=== PATIENT | female | born 1990 | race Caucasian/White ===

== ENCOUNTER → 2023-03-10 23:12 | Outpatient (CLI) | payer BC, SELFPAY ==
[2023-03-10 18:11] LABS: Basophils # 0.1 K/mm3 (0-0.2); Basophils % 0.7 % (0.1-2.0); Eosinophils # 0.1 K/mm3 (0.0-0.4); Eosinophils % 1.4 % (0.1-12.0); Hematocrit 42.1 % (37.0-47.0); Hemoglobin 13.7 g/dL (12.2-16.2); Lymphocytes # 2.3 K/mm3 (0.7-4.5); Lymphocytes % 32.6 % (10-50); Mean Corpuscular HGB Conc 32.6 g/dL (31.8-35.4); Mean Corpuscular Hemoglobin 27.9 pg (27.0-31.2); Mean Corpuscular Volume 85.4 fl (81-99); Mean Platelet Volume 8.3 fl (7.4-10.4); Monocytes # 0.3 K/mm3 (0.1-1.0); Monocytes % 4.8 % (1.7-9.3); Neutrophils # 4.3 K/mm3 (1.8-7.8); Neutrophils % 60.5 % (37.0-80.0); Platelet Count 256 K/mm3 (142-424); Red Blood Count 4.93 M/mm3 (4.20-5.40); White Blood Count 7.1 K/mm3 (4.8-10.8)
[2023-03-10 18:17] LABS: Anion Gap 12.4 mEq/L (5-15); Blood Urea Nitrogen 9 mg/dl (7-17); Carbon Dioxide 27 mmol/L (22.0-30.0); Chloride 105 mmol/L (98-107); Estimated Glomerular Filt Rate 96 ml/min (>60); GFR (African American) 116 ML/MIN (>60); Glucose 97 mg/dl (74-100); Potassium 4.4 mmoL/L (3.5-5.1); Sodium 140 mmol/L (136-145)
== END ==
PROVIDERS: PCP Nurse Practitioner; Visit Provider Nurse Practitioner
DX: Z01.818 Encounter for other preprocedural examination (principal)
CPT/HCPCS: 80048; 85025

== ENCOUNTER 2025-08-14 14:13 | Outpatient (CLI) | payer BC, SELFPAY ==
--- OUTSIDE RECORDS SUMMARY | 2024-08-13 10:45 | XMS_ITS ---
Author Organization [facility], [place], operated by [facility] Address [address] [place] [address] Care Team Providers Care Patternmaker Hand Name Role Phone Debi Askew Unavailable [phone] DallamNora menjivar Unavailable [phone] REASON FOR VISIT Annual Encounters Encounter Location Date Provider Diagnosis [facility] [address] [place] [address] 08/13/2024 Nora Graham Plan Of Treatment No Information Progress Notes * Silke BEALDOB:1989 (35 yo F)Acc No.[id number]:08/13/2024 Progress Note Patient: Radha sagastume Silke Hurtado Provider: Erlin Graham DO :1990 A ge:34 Y S ex:Female Date:08/13/2024 Address:[address] [place], [place] [id number] Subjective: * Chief Complaints: * A nnual * Electronic signature of Junior Graham DO on 08/14/2025 at 03:32 PM EST Sign off status: Pending Visit Status: R /S (Rescheduled) * Provider: Erlin Graham DO Date: 10/14/2023 Generated for Jean Paul vigil/[place]/eTransmitting on: 10/15/2024 03:32 PM EST
--- OUTSIDE RECORDS SUMMARY | 2024-10-08 10:45 | XMS_ITS ---
Author Organization [facility] Address [address] [place] [address] Care Team Providers Care Legal Office Administrator Name Role Phone Debi Askew Unavailable [phone] BaileyNora menjivar Unavailable [phone] REASON FOR VISIT Annual Encounters Encounter Location Date Provider Diagnosis [facility] [address] [place] [address] 10/08/2024 Nora Graham Plan Of Treatment No Information Progress Notes * Silke BEALDOB:1989 (35 yo F)Acc No.[id number]:10/08/2024 Progress Note Patient: Radha sagastume Silke Hurtado Provider: Erlin Graham DO :1990 A ge:34 Y S ex:Female Date:10/08/2024 Address:[address] [place], [place] [id number] Subjective: * Chief Complaints: * A nnual * Electronic signature of Junior Graham DO on 08/14/2025 at 03:31 PM EST Sign off status: Pending Visit Status: R /S (Rescheduled) * Provider: Erlin Graham DO Date: 0 10/08/2024 Generated for Jean Paul vigil/[place]/eTranzuhairitting on: 1 10/15/2024 03:31 PM EST
--- OUTSIDE RECORDS SUMMARY | 2024-10-17 05:15 | XMS_ITS ---
Author Organization [facility] Address [address] [place] [address] Care Team Providers Care Maintenance Of Way Superintendent Name Role Phone Debi Askew Unavailable [phone] CharlyIsis [phone] REASON FOR VISIT Annual Encounters Encounter Location Date Provider Diagnosis [facility] [address] [place] [address] 10/17/2024 Isis Parks Plan Of Treatment No Information Progress Notes * Silke BEALDOB:1989 (35 yo F)Acc No.[id number]:10/17/2024 Progress Note Patient: Radha sagastume Silke Hurtado Provider: Lidia Parks MD :1990 A ge:34 Y S ex:Female Date:10/17/2024 Address:[address] [place], [place] [id number] Subjective: * Chief Complaints: * A nnual * Electronic signature of Mirian Parks MD on 08/14/2025 at 03:32 PM EST Sign off status: Pending Visit Status: R /S (Rescheduled) * Provider: Lidia Parks MD Date: 0 10/17/2024 Generated for Jean Paul vigil/[place]/eTransmitting on: 1 10/15/2024 03:32 PM EST
--- OUTSIDE RECORDS SUMMARY | 2024-12-25 09:45 | XMS_ITS ---
Author Organization [facility] Address [address] [place] [address] Care Team Providers Care Kraft Digester Operator Name Role Phone Whitney iTnsley Primary Care Provider UnavailKartik Bustamante Unavailable [phone] REASON FOR VISIT Not Feeling Well Encounters Encounter Location Date Provider Diagnosis [address] [address] 12/25/2024 Kartik Walker Plan Of Treatment No Information Progress Notes * Barrett BEALTaviaOB:[birth year] (35 yo F)Acc No.[id number]:12/25/2024 Progress Notes Patient: Silke JONES Provider: BESSIE Watkins, LEBRON, CONVEYOR CONSOLE OPERATOR-BC :1990 A ge:34 Y S ex:Female Date:12/25/2024 External Visit ID:[id number] Address:[address], [place] [address] Pcp:Whitney Tinsley Subjective: * Chief Complaints: * 1 . Not Feeling Well. * Medical History: Objective: * Vitals: Assessment: Plan: * Treatment: * Billing Information: * Visit Code: * Procedure Codes: Care Plan Details* * Electronic signature of Luis in LEBRON Walker on 08/14/2025 at 02:32 PM [facility] Sign off status: Pending * Provider: BESSIE Watkins, COST ENGINEER, CONVEYOR CONSOLE OPERATOR-BC Date: 0 12/25/2024 Generated for Printing/Faxing/eTransmitting on: 1 10/15/2024 02:32 PM [facility]
--- OUTSIDE RECORDS SUMMARY | 2025-07-28 07:45 | XMS_ITS ---
Author Organization [facility] Address [address] [place] [address] Care Team Providers Care Host/Hostess Restaurant Name Role Phone LaureanoWhitney Primary Care Provider Unavailconstantin e Zofia Thapa Unavailable [phone] Allergies Allergen (clinical drug ingredient) Drug/Non Drug Allergy documented on EMR Reaction Allergy Type Onset Date Status vancomycin Vancomycin rash Drug Allergy Activ e Results Component Value Reference Range Notes Rapid Strep Screen (IH) Reviewed date:07/28/2025 01:15:29 PM Interpretation:Negative Performing Lab: Notes/Report: Negative Negative NEG REASON FOR VISIT I've been waking up with a sore throat Social History Tobacco Use: Social History Observation Description Date Details (start date - stop date) Never Smoker NA - NA Tobacco Control (Standard) Question Answer Notes Tobacco use: Nonsmoker AUDIT-C (Standard) Question Answer Notes Did you have a drink containing alcohol in the p ast year? No Points 0 Interpretation Negative Vital Signs Temperature 98.6 degrees Fahrenheit 07/28/20 25 Respiratory Rate 15 /min 07/28/2025 Blood pressure systolic 106 mm Hg 07/28/20 25 Blood pressure diastolic 68 mm Hg 025 Height 067 in 07/28/2025 Weight 0160 lbs 07/28/2025 BMI 25.06 kg/m2 07/28/2025 Encounters Encounter Location Date Provider Diagnosis [address] [place] [address] [address] [facility] [address] [place] [address] 07/28/2025 Zofia Thapa Sore throat J02.9 and Screening for streptococcal infection Z11.2 Assessments Encounter Date Diagnosis (ICD Code) Assessment Notes Treatment Notes Treatment Clinical Notes Section Notes 07/28/2025 Sore throat (ICD-10 - J02.9) Add a humidifier in the room that you sleep and take OTC analgesic medications. 07/28/2025 Screening for streptococcal infection (ICD-10 - Z11.2) Plan Of Treatment Treatment Notes Assessment Notes Sore throat Add a humidifier in the room that you sleep and take OTC analgesic medications. Next Appt Details Follow Up: Here, in 7-10 day s if symptoms do not improve, Reason: Progress Notes * Angeline BEALOB:[birth year] (35 yo F)Acc No.[id number]:07/28/2025 Progress Notes Patient: Silke JONES Provider: Genesis Thapa DNP :1990 A ge:35 Y S ex:Female Date:07/28/2025 External Visit ID:[id number] Address:[address] [place], [place] [address] Pcp:Whitney Tinsley Subjective: * Chief Complaints: * 1 . I've been waking up with a sore throat . * HPI: M outh and Throat: sore throat O n Tuesday she started getting a sore throat, it was really bad yesterday and she is feeling better today then overnight she developed a cough; 1 day; overall she would call this mild; nature: non-productive feels deep nothing that she can tell is making her feel worse; when she wakes up in the morning her throat hurts really bad then get better throughout the day; hasn't tried anything yet to make this better; no viral URI symptoms or fever, chills, or bodyaches. * ROS: M OUTH AND THROAT: no d ifficulty swallowing. n o d rooling. n o?tonsilar enlargement. n o p ost nasal drip. s ore throat y es. * Medical History: U lcerative colitis. * Surgical History: c olectomy 2019. * Hospitalization/Major Diagno stic Procedure: a s above . * Family History: F ather: alive, diagnosed with Hypertension. M other: alive. 1 brother(s) , 1 sister(s) - healthy. . N on-Contributory. * Social History: G eneral*: S igns of Abuse or Neglect: no. Alcohol (routine assessment/review): rarely, Gretchen Sanchez 07/28/2025 12:55:18 PM EST >. Illicit drug use: no, Gretchen Sanchez 07/28/2025 12:55:22 PM EST >. 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 D rug/Alcohol: A ISAIAS-C (Standard) D id you have a drink containing alcohol in the past year? N o, P oints 0 , I nterpretation N egative. T obacco Use: T obacco Control (Standard) T obacco use: N onsmoker. * Medications: N one * Allergies: V ancomycin: rash. Objective: * Vitals: T emp:98.6, Pulse:83, RR:15, BP:106/68, Pain (at time of visit):5/10, LNMP: 11.12.25, Ht: 067, Wt: 0160, BMI:25.06. * Examination: F ocused Exam: GENERAL: a lert and oriented x 4, no acute distress, dress appropriate for the environment & temp, well-groomed, appears well. HEAD: s ymmetrical facial features, normocephalic. EARS: b ilateral, external canal w/o redness, swelling, discharge, TM intact, pearly cline, landmarks visualized, non-tender. NOSE , no discharge. MOUTH AND THROAT: - -PHARYNX- -, pharynx injected, no tonsillar enlargement, no exudate. NECK: n o cervical adenopathy. RESPIRATORY: b reath sounds clear throughout, respiration even and unlabored. CARDIO: S 1 & S2 single sounds, no murmurs, gallops, rubs, or clicks, RRR. Assessment: * Assessment: 1. S ore throat - J02.9 (Primary) 2 . S creening for streptococcal infection - Z11.2 Plan: * Treatment: 2. S creening for streptococcal infection L AB: Rapid Strep Screen (IH) (Collection Date & Time - 07/28/2025 01:15 PM) N egative Value Reference Range N egative NEG * After patient assessed, lab/ test ordered by provider of record, then specimen collected by: Heaven Benitez Jacqueline R 07/28/2025 01:15:22 PM EST > * Procedure Codes: 8 7880 Rapid Strep Screen, Modifiers: QW , SVP RESEARCH AND STRATEGIC ANALYSIS Sending to Medical Transcription Radiology for Code Review * Follow Up: H ere, in 7-10 days if symptoms do not improve * Billing Information: * Visit Code: * Procedure Codes: 89522 Rapid Strep Screen. Modifiers: QW SVP RESEARCH AND STRATEGIC ANALYSIS Sending to Medical Transcription Radiology for Code Review. Care Plan Details* Images * 07.28.25 id and insurance * Sign off status: Completed true * Provider: Genesis Thapa DNP Date: 09/27/2024 Generated for Jean Paul vigil/[place]/Thuy on: 10/15/2024 02:31 PM CRM ARCHITECT History and Physical Notes * HPI (History of Present Illness) Category Sub-Category Detail Notes Category Not es Mouth and Throat sore throat On Tuesday she started getting a sore throat, it was really bad yesterday and she is feeling better today then overnight she developed a cough; 1 day; overall she would call this mild; nature: non-productive feels deep nothing that she can tell is making her feel worse; when she wakes up in the morning her throat hurts really bad then get better throughout the day; hasn't tried anything yet to make this better; no viral URI symptoms or fever, chills, or bodyaches Examination Category Sub-Category Detail Notes Category Not es Focused Exam HEAD: symmetrical facial features, normocephalic EARS: bilateral, external canal w/o redness, swelling, discharge, TM intact, pearly cline, landmarks visualized, non-tender NOSE , no discharge MOUTH AND THROAT: - -PHARYNX- -, phary nx injected, no tonsillar enlargement, no exudate NECK: no cervical adenopat hy RESPIRATORY: breath sounds clear throughout, respiration even and unlabored GENERAL: alert and oriented x 4, no acute distress, dress appropriate for the environment & temp, well-groomed, appears well CARDIO: S1 & S2 single sound s, no murmurs, gallops, rubs, or clicks, RRR
--- OUTSIDE RECORDS SUMMARY | 2025-08-04 05:15 | XMS_ITS ---
Author Organization [facility] Address [address] [place] [address] Care Team Providers Care Para Professional Name Role Phone LaureanoWhitney mccarty Primary Care Provider Lisset Nash [phone] Allergies Allergen (clinical drug ingredient) Drug/Non Drug Allergy documented on EMR Reaction Allergy Type Onset Date Status vancomycin Vancomycin rash Drug Allergy Activ e Results Component Value Reference Range Notes Urinalysis (IH) Reviewed date:08/04/2025 10:45:47 AM Interpretation:Positive Performing Lab: Notes/Report: Positive Blood Non-Hemolyzed 250 negative - ca. 250 Er y/ml Urobili Norm normal - 12 mg/dL Bili Neg negative - large Protein Neg negative - 500 mg/dL Nitrites Pos negative - positive Ketone Neg negative - large mg/dL Ascorbic Acid Neg trace - large Glucose Neg negative - > 1000 mg/dL pH 6 5.0 - 9.0 Spec. Gr. 1.005 1.000 - 1.030 LEUK 500 negative - ca. 500 Benito/ml REASON FOR VISIT UTI symptoms Medications Medication SIG (Take, Route, Frequency, Duration) Notes Start Date End Date Status Nitrofurantoin Monohyd Macro 100 MG 1 capsule with food Orally every 12 hrs; Duration: 5 days 08/04/2025 Active Social History Tobacco Use: Social History Observation Description Date Details (start date - stop date) Never Smoker NA - NA Tobacco Control (Standard) Question Answer Notes Tobacco use: Nonsmoker AUDIT-C (Standard) Question Answer Notes Did you have a drink containing alcohol in the p ast year? No Points 0 Interpretation Negative Vital Signs Temperature 99.3 degrees Fahrenheit 08/04/20 25 Respiratory Rate 18 /min 08/04/2025 Blood pressure systolic 104 mm Hg 08/04/20 25 Blood pressure diastolic 78 mm Hg 025 Height 67 in 08/04/2025 Weight 160 lbs 08/04/2025 BMI 25.06 kg/m2 08/04/2025 Oximetry 96 08/04/2025 Encounters Encounter Location Date Provider Diagnosis [facility] [address] [place] [address] 08/04/2025 Lisset Dobson Acute cystitis without hematuria N30.00 and Dysuria R30.0 Assessments Encounter Date Diagnosis (ICD Code) Assessment Notes Treatment Notes Treatment Clinical Notes Section Notes 08/04/2025 Acute cystitis without hematuria (ICD-10 - N30.00) 08/04/2025 Dysuria (ICD-10 - R30.0) Plan Of Treatment Medication Medication Name Sig Start Date Stop Date Notes Nitrofurantoin Monohyd Macro 100 MG 1 capsule with food Orally every 12 hrs; Duration: 5 days 08/04/2025 Next Appt Details Follow Up: 1 Week, Reason: i f symptoms persist Progress Notes * Angeline BEALOB:[birth year] (35 yo F)Acc No.[id number]:08/04/2025 Progress Notes Patient: Silke JONES Provider: Freddy Dobson APRN :1990 A ge:35 Y S ex:Female Date:08/04/2025 External Visit ID:[id number] Address:[address] [place], [place] [id number] Pcp:Whitney Tinsley Subjective: * Chief Complaints: * 1 . UTI symptoms. * HPI: D epression/Anxiety Screening: PHQ-2 (2015 Edition) L ittle interest or pleasure in doing things? N ot at all, F eeling down, depressed, or hopeless? N ot at all, T otal Score 0 . C onstitutional: Patient started having UTI symptoms last night and this morning had worsened. Her symptoms include urgency, suprapubic pain, and dysuria. She took Azo last night with no improvement. * ROS: C ONSTITUTIONAL: no f ever. U ROLOGY: dysuria y es. f requency y es. u rgency y es. n o u rinary incontinence. n o f lank pain. M USCULOSKELETAL: back pain N o. * Medical History: U lcerative colitis. * Surgical History: c olectomy 2019. * Hospitalization/Major Diagno stic Procedure: a s above . * Family History: F ather: alive, diagnosed with Hypertension. M other: alive. 1 brother(s) , 1 sister(s) - healthy. . N on-Contributory. * Social History: G eneral*: S igns of Abuse or Neglect: no. Alcohol (routine assessment/review): rarely, Gretchen Sanchez S 07/28/2025 12:55:18 PM EST >. Illicit drug use: no, EverGretchen ruano S 07/28/2025 12:55:22 PM EST >. 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 D rug/Alcohol: A ISAIAS-C (Standard) D id you have a drink containing alcohol in the past year? N o, P oints 0 , I nterpretation N egative. T obacco Use: T obacco Control (Standard) T obacco use: N onsmoker. * Medications: N one * Allergies: V ancomycin: rash. Objective: * Vitals: T emp:99.3, Pulse:90, RR:18, BP:104/78, Pain (at time of visit):10, LNMP: 07/10/25, Ht: 67, Wt: 160, BMI:25.06, Pulse Ox:96. * Examination: F ocused Exam: GENERAL: a lert and oriented x 4. NECK: n o cervical adenopathy. RESPIRATORY: b reath sounds clear throughout, bilaterally.? CARDIO: r egular. ABDOMEN: t trin[place] to suprapubic region. PSYCH: f riendly attitude. UROLOGICAL: n o CVA tenderness, suprapubic tenderness, urine cloudy. Assessment: * Assessment: 1. A cute cystitis without hematuria - N30.00 (Primary) 2 . D ysuria - R30.0 Plan: * Treatment: 2. D ysuria L AB: Urinalysis (IH) (Collection Date & Time - 08/04/2025) P ositive Value Reference Range B lood Non-Hemolyzed 250 negative - ca. 250 E ry/ml * U robili Norm normal - 12 mg/dL * B francie Neg negative - large * P rotein Neg negative - 500 mg/dL * N itrites Pos negative - positive * K etone Neg negative - large mg/ dL * A scorbic Acid Neg trace - large * G lucose Neg negative - > 1000 mg /dL * p H 6 5.0 - 9.0 * S pec. Gr. 1.005 1.000 - 1.030 * L EUK 500 negative - ca. 500 L eu/ml * After patient assessed, lab/ test ordered by provider of record, then specimen collected by: Lisset Mosley 08/04/2025 10:44:49 AM EST > * Procedure Codes: 8 1002 URINALYSIS NON AUTOMATED WITH NO MICRO, COMFORT FILLER Sending to Candy Bar Attendant for Code Review * Follow Up: 1 Week (Reason: if symptoms persist) * Billing Information: * Visit Code: * Procedure Codes: 70550 URINALYSIS NON AUTOMATED WITH NO MICRO. COMFORT FILLER Sending to Candy Bar Attendant for Code Review. Care Plan Details* * Sign off status: Completed true * Provider: Freddy Dobson APRN Date: 10/05/2024 Generated for Jean Paul vigil/[place]/Virginiasmitting on: 10/15/2024 02:32 PM HAMMER DRIVER History and Physical Notes * HPI (History of Present Illness) Category Sub-Category Detail Notes Category Not es Constitutional Patient start ed having UTI symptoms last night and this morning had worsened. Her symptoms include urgency, suprapubic pain, and dysuria. She took Azo last night with no improvement. Depression/Anxiety Screening PHQ-2 (2015 Edition) Little interest or pleasure in doing things?: Not at all Feeling down, depressed, or hopeless?: N ot at all Total Score: 0 Examination Category Sub-Category Detail Notes Category Not es Focused Exam NECK: no cervical adenopathy RESPIRATORY: breath sounds clear throughout, bilaterally ABDOMEN: tender to suprapubic region GENERAL: alert and oriented x 4 PSYCH: friendly attitude CARDIO: regular UROLOGICAL: no CVA tenderness, s uprapubic tenderness, urine cloudy
--- NOTE | 2025-08-14 14:30 | CA_ITS ---
APPROVED REPORT EXAM: Comprehensive 2D, Doppler, and color-flow Echocardiogram Tipple Repairer: HUMBERTO Penn, RVS Ht: 5 ft 7 in Wt: 165lbs BSA: 1.86 BP: 120/80 mmHg Indications: Palpitations Echo Enhancing Agent Comments: Limited windows 2D Dimensions Left Atrium 1.88 cm LA Volume 27.30 mL LA Volume Index 14.30 mL/m2 (M/F) 16-34 M-Mode Dimensions RVDd 1.78 cm (0.9-2.6) LA Diam 2.13 cm (1.9-4.0) LVDd 4.61 cm (3.5-5.7) LVDs 3.12 cm (3.5-5.7) IVSd 0.50 cm (0.6-1.1) PWd 0.58 cm (0.6-1.1) EF (Teich) 60.60% EPSs 0.29 cm FS 32.30% EDV (Teich) 97.80 mL TAPSE 1.86 (<1.7) ESV (Teich) 38.50 mL LV Diastology E Decel Time 97 (160-240 msec) E/A Ratio 1.24 MED A' 9.80 cm/s LAT A' 8.00 cm/s Aortic Valve AoV Peak Lee. 108.0 (50-130 cm/s) AO Peak GR. 4.70 mmHg AO Mean GR. 2.30 (<5 mmHg) AO VTI 20.1 (18-25 cm) Mitral Valve MV A Velocity 64.0 (40-130 cm/s) E/A Ratio 1.24 Pulmonary Valve PV Peak Velocity 73.0 (50-150 cm/s) Left Ventricle The left ventricle is normal size. Left ventricular systolic function is normal. The left ventricular ejection fraction is within the normal range. There is normal left ventricular wall thickness. There is normal LV segmental wall motion. The left ventricular diastolic function is normal. LVEF is 55% Right Ventricle The right ventricle is normal size. The right ventricular systolic function is normal. Atria The left atrium size is normal. The right atrium size is normal. There is no color Doppler evidence of interatrial shunt. Aortic Valve The aortic valve opens well. There is no hemodynamically significant aortic valvular stenosis. No aortic regurgitation is present. Mitral Valve The mitral valve is normal in structure. No evidence of mitral valve stenosis. Trace mitral regurgitation is present. Tricuspid Valve The tricuspid valve leaflets are thin and pliable. Trace tricuspid regurgitation. There is insufficient TR jet to estimate RVSP. Pulmonic Valve The pulmonary valve is grossly normal in structure. Trace pulmonic valve regurgitation is present. Great Vessels The aortic root is normal in size. IVC is normal in size and collapses >50% with inspiration. Pericardium There is no pericardial effusion. Other Information Study Quality: Fair Conclusion Normal biventricular systolic function. No significant valvular stenosis or regurgitation. Electronically signed by : Caren Chopra MD 08/21/2025 19:53:30
--- NOTE | 2025-08-14 15:10 | XR_ITS ---
FINAL REPORT CLINICAL HISTORY: palps, SOB at rest FINDINGS: PA and lateral views of the chest are obtained. There is no prior exam for comparison. The cardiac and mediastinal silhouettes are within normal limits. The lungs are clear. There is no pleural effusion, pneumothorax, or acute osseous abnormality. IMPRESSION: No radiographic evidence of acute cardiac or pulmonary disease. Reviewed, Interpreted and Dictated by Trang Mtz MD Transcribed by Sabrina Johnston Authenticated and [facility]
[2025-08-14 15:24] LABS: Hematocrit 39.6 % (37.0-47.0); Hemoglobin 13.4 g/dL (12.2-16.2); Immature Granulocytes % 0.2 %; Mean Corpuscular HGB Conc 33.8 g/dL (31.8-35.4); Mean Corpuscular Hemoglobin 28.8 pg (27.0-31.2); Mean Corpuscular Volume 85.2 fl (81-99); Nucleated Red Blood Cells % 0 %; Platelet Count 308 K/mm3 (142-424); Red Blood Count 4.65 M/mm3 (4.20-5.40); Red Cell Distribution Width-SD 38.1 fL; White Blood Count 8.4 K/mm3 (4.8-10.8)
--- OUTSIDE RECORDS SUMMARY | 2025-08-14 15:31 | XMS_ITS | Patient Health Record ---
Author Organization [facility] Address [address] [place] [address] Care Team Providers Care Director Information Security Name Role Phone Debi Askew Unavailable [phone] Isis Parks Unavailable [phone] Nora Graham Unavailable [phone] Allergies Allergen (clinical drug ingredient) Drug/Non Drug Allergy documented on EMR Reaction Allergy Type Onset Date Status vancomycin VANCOMYCIN (uncoded) Unspecified Allergy 2019 Active Results Component Value Reference Range Notes Pap w/HPV Reviewed date:11/28/2024 08:59:28 AM Interpretation:NILM/HPV neg Performing Lab:[facility] [place] CLIA ID [id number], [address], [address], [place] [address], Director - Kale Daniel MD Notes/Report: Any Nucleic Acid Amplification testing is performed on the [employer]. Diagnosis: Negative for intraepithelial lesion or malignancy. 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 Specimen Adequacy: Satisfactory for interpretation with endocervical/transformat ion zone component absent. Pertinent Clinical History/History of Surgery: Not provided Collection Technique: Not provided Results of Last Pap: Not provided LMP: unknown Date of Last Pap: Not provided Specimen Source: Cervical/Endocervical Specimen Type: ThinPrep Other Gynecological Patient Information: Not provided Recommendation: Follow-up based on current clinical guidelines and/or clinical consideration. Screening note: This specimen has been analyzed by the [employer] Imaging System, an interactive computer system which assists the lab in screening of ThinPrep Pap Test slides. Following imaging, the slide was reviewed by a Global Regulatory Lead and/or Pathologist. Negative Educational Note: The pap screening test aids in the detection of premalignant and malignant states of the cervix. False positive and negative results may occur. It is not a diagnostic test. If abnormal cells are reported, follow-up based on current clinical guidelines and/or clinical consideration is recommended. Shobha Soni Global Regulatory Lead CPT Codes: 71038 ICD Codes: Z01.419 HPV High-Risk Negative Negative Reason For Referral No Information Problems Problem Type SNOMED Code ICD Code Onset Dates Problem Status W/U Status Risk Notes Problem Gynecological examination normal ([id number] 4) Cervical smear, as part of routine gynecological examination (Z01.419) 019 Active confirmed Annual without abnormal findings Problem Counseling (287059105) ACP (advance care planning) (Z71.89) 021 Active confirmed Contraception counseling Vital Signs Blood pressure diastolic 70 mm Hg 11/20/2024 Height 67 in 11/20/2024 Blood pressure systolic 118 mm Hg 11/20/2024 Weight 166.2 lbs 11/20/2024 BMI 26.03 kg/m2 11/20/2024 Encounters Encounter Location Date Provider Diagnosis [facility] [address] [facility] [address] [place] [address] 12/05/2024 [facility] [address] [facility] [address] [place] [address] 11/20/2024 [facility] Equipment Engineer exam without abnormal findings Z01.419 Assessments Encounter Date Diagnosis (ICD Code) Assessment Notes Treatment Notes Treatment Clinical Notes Section Notes 11/20/2024 Equipment Engineer exam without abnormal findings (ICD-10 - Z01.419) We encourage our patients to adopt a healthy lifestyle, including the following recommendations. Limit the use of alcohol. Take a multivitamin daily (that contains 400mcg folic acid, 400-500mg calcium, and 800 units vitamin D. Exercise regularly (at least 3-4 times per week for 30 mins. or more each time), eat a healthy diet, and maintain a healthy weight. Perform monthly breast self exams., Well Visit, Ages 18 to 50: Care Instructions material was published Plan Of Treatment No Information Insurance Providers Payer Name Payer Address Payer Phone Subscriber Number Group Number Insured Name Patient Relationship to Insured Coverage Start Date Coverage End Date [facility] [address] [place] [address] [id number] Silke Danielle Self - patient is the insured 2 Medical (General) History Medical History History ICD Code Ulcerative colitis: no remaining colon Abnormal paps HPV Bacterial vaginosis Irritable bowel Yeast Infections Hepatitis C: s/p treatment Surgical History Surgery Date(Month/Year) LEEP 2015 Total Colectomy with End Ilestomy 2018
--- OUTSIDE RECORDS SUMMARY | 2025-08-14 15:33 | XMS_ITS | Patient Health Record ---
Author Organization [facility] Address [address] [place] [address] Care Team Providers Care Codifier Name Role Phone Laureano Whitney Primary Care Provider Unavailabl e Kartik Walker Unavailable [phone] Zofia Thapa Unavailable Trey Martínez Unavailable [phone] Lisset Dobson Unavailable [phone] Allergies Allergen (clinical drug ingredient) Drug/Non Drug Allergy documented on EMR Reaction Allergy Type Onset Date Status vancomycin Vancomycin rash Drug Allergy Activ e Results Component Value Reference Range Notes Rapid Strep Screen (IH) Reviewed date:07/28/2025 01:15:29 PM Interpretation:Negative Performing Lab: Notes/Report: Negative Negative NEG Urinalysis (IH) Reviewed date:08/04/2025 10:45:47 AM Interpretation:Positive [...] LEUK 500 negative - ca. 500 Benito/ml Flu/COVID Rapid Antigen (IH) Reviewed date:12/26/2024 10:32:37 AM Interpretation:Positive Performing Lab: Notes/Report: Positive Flu A negative Negative - Positive Flu B positive Negative - Positive SARS CoV 2 negative Negative - Positive Rapid Strep Screen (IH) Reviewed date:12/26/2024 10:33:16 AM Interpretation:Negative Performing Lab: Notes/Report: Negative Negative negative Reason For Referral No Information Medications Medication SIG (Take, Route, Frequency, Duration) [...] ast year? No Points 0 Interpretation Negative Problems Problem Type SNOMED Code ICD Code Onset Dates Problem Status W/U Status Risk Notes Problem Encounter for screening for COVID-19 (Z11.52) Active confirmed Problem Nausea (941826634) Nausea (R11.0) Active confirmed Problem Sore throat (096715718) Sore throat (J02.9) Active confirmed Problem Rapid pulse (75250446) Rapid pulse (R00.0) Active confirmed Problem Influenza B virus (organism) (328735575) Influenza B (J10.1) Active confirmed Problem Acute bilateral otitis media (984311033) Acute bilateral otitis media (H66.93) Active confirmed Problem Non-suppurative otitis media (478990471) Middle ear effusion, bilateral (H65.93) Active confirmed Problem Murmur (952291701) Murmur (R01.1) Active confirmed Problem Ulcerative colitis (36981118) Ulcerative colitis (K51.90) Active confirmed Problem Overweight (736062569) Overweight (BMI 25.0-29.9) (E66.3) Active confirmed Vital Signs Temperature 99.3 degrees Fahrenheit 08/04/2025 Respiratory Rate 18 /min 08/04/2025 Oximetry 96 08/04/2025 Blood pressure diastolic 78 mm Hg 08/04/2025 Height 67 in 08/04/2025 Blood pressure systolic 104 mm Hg 08/04/2025 Weight 160 lbs 08/04/2025 BMI 25.06 kg/m2 08/04/2025 Encounters Encounter Location Date Provider Diagnosis [address] [address] 12/26/2024 Kartik Denise Influenza B J10.1 ; Acute bilateral otitis media H66.93 ; Middle ear effusion, bilateral H65.93 ; Sore throat J02.9 ; Encounter for screening for COVID-19 Z11.52 ; Rapid pulse R00.0 and Murmur R01.1 [address] [facility] [address] [place] [address] 04/17/2025 Trey Martínez Hand, foot and mouth disease B08.4 and Overweight (BMI 25.0-29.9) E66.3 [address] [facility] [address] [place] [address] 07/28/2025 Zofia Thapa Sore throat J02.9 and Screening for streptococcal infection Z11.2 [address] [facility] [address] [place] [address] 08/04/2025 Lisset Dobson Acute cystitis without hematuria N30.00 and Dysuria R30.0 Assessments Encounter Date Diagnosis (ICD Code) Assessment Notes Treatment Notes Treatment Clinical Notes Section Notes 12/26/2024 Influenza B (ICD-10 - J10.1) Influenza (Flu): Care Instructions material was published Outside of the antiviral therapy window. 04/17/2025 Hand, foot and mouth disease (ICD-10 - B08.4) Declines need for prescription treatment and will just treat with OTC. Encourage hydration, rest and tylenol for relief. Visit summary given to and discussed with patient and/or parent who verbalizes understanding and agreement with plan of care., Nxfm-Lgok-Xwouo Disease: Care Instructions material was published 04/17/2025 Overweight (BMI 25.0-29.9) (ICD-10 - E66.3) Continue healthy eating and exercise. May follow up with [facility] dietitians via a telehealth visit at [email or web address] to help with dietary changes to lower BMI., Learning About Obesity material was published 07/28/2025 Sore throat (ICD-10 - J02.9) Add a humidifier in the room that you sleep and take OTC analgesic medications. 08/04/2025 Dysuria (ICD-10 - R30.0) 08/04/2025 Acute cystitis without hematuria (ICD-10 - N30.00) 07/28/2025 Screening for streptococcal infection (ICD-10 - Z11.2) 12/26/2024 Acute bilateral otitis media (ICD-10 - H66.93) Ear Infection (Otitis Media): Care Instructions material was published 12/26/2024 Middle ear effusion, bilateral (ICD-10 - H65.93) Middle Ear Fluid: Care Instructions material was published 12/26/2024 Sore throat (ICD-10 - J02.9) Sore Throat: Care Instructions material was published 12/26/2024 Encounter for screening for COVID-19 (ICD-10 - Z11.52) 7 Reasons You May Need a COVID-19 Viral Test material was published 12/26/2024 Rapid pulse (ICD-10 - R00.0) 12/26/2024 Murmur (ICD-10 - R01.1) Appears benign and potentially due to influenza. Patient instructed to follow up with PCP for further evaluation. 12/26/2024 Other Dextromethorpha n material was published, Brompheniramine material was published, Pseudoephedrine material was published, Azithromycin material was published, Fluconazole material was published Plan Of Treatment No Information Insurance Providers Payer Name Payer Address Payer Phone Subscriber Number Group Number Insured Name Patient Relationship to Insured Coverage Start Date Coverage End Date [facility] [address] [place] [address] [phone] [id number] Silke Rios Self - patient is the insured Medical (General) History Medical History History ICD Code Ulcerative colitis K51.90 Surgical History Surgery Date(Month/Year) colectomy 2019 Hospitalization History Reason Date(Month/Year) as above
--- NOTE | 2025-08-14 15:34 | ECG_ITS ---
APPROVED REPORT Exam: Resting ECG HR:65 bpm ECG Measurements Heart Rate 65 AXES LA 173 P 63 QRSd 102 QRS 96 QT 384 T 69 QTc 395 Conclusion SINUS RHYTHM WITH SINUS ARRHYTHMIA BORDERLINE RIGHT AXIS DEVIATION [QRS AXIS > 90] BORDERLINE ECG UNCONFIRMED REPORT Electronically signed by : Donal Bravo MD 08/15/2025 08:25:39
[2025-08-14 15:51] LABS: Alanine Aminotransferase 18 U/L (12-78); Albumin Level 5.0 g/dl (3.5-5.0); Albumin/Globulin Ratio 1.7 (1.1-1.8); Alkaline Phosphatase 65 U/L (38-126); Anion Gap 9.0 mEq/L (5-15); Aspartate Amino Transferase 29 U/L (14-36); Bilirubin,Total 0.5 mg/dl (0.2-1.3); Blood Urea Nitrogen 12 mg/dl (7-17); Calcium 10.3 mg/dl (8.4-10.2); Carbon Dioxide 29 mmol/L (22.0-30.0); Chloride 103 mmol/L (98-107); Cholesterol 166 mg/dl (140-200); Creatinine,Serum 0.90 mg/dl (0.52-1.04); Estimated Glomerular Filt Rate 71 ml/min (>60); GFR (African American) 86 ML/MIN (>60); Globulin 3.0 g/dL (1.3-3.2); Glucose 88 mg/dl (74-100); HDL Cholesterol 92 mg/dl (40-60); Iron 102 ug/dL (37-170); Magnesium 2.3 mg/dl (1.6-2.3); Phosphorous 3.6 mg/dl (2.5-4.5); Potassium 4.0 mmoL/L (3.5-5.1); Sodium 137 mmol/L (136-145); Total Protein,Serum 8.0 g/dl (6.3-8.2); Triglycerides 64 mg/dl (30-150)
[2025-08-14 16:03] LABS: Total Iron Binding Capacity 297 ug/dL (265-497)
[2025-08-14 16:09] LABS: 25-OH Vitamin D, Total 32.5 ng/mL (30-100)
[2025-08-14 16:22] LABS: Thyroid Stimulating Hormone 2.17 uIU/mL (0.465-4.68)
[2025-08-14 16:41] LABS: Vitamin B12 852 pg/mL (239-931)
[2025-08-14 16:47] LABS: Hepatitis C Ab Qual. W/ RFX REACTIVE (Negative)
[2025-08-14 16:50] LABS: Hemoglobin A1C 5.2 % (4.0-6.0)
[2025-08-14 17:05] LABS: Folate > 20.00 ng/mL
[2025-08-16 09:29] LABS: Hepatitis B Surface Antigen Negative (Negative)
== END 2025-08-14 23:59 | disposition home or self-care (01) ==
LOC: RT 14:15
PROVIDERS: PCP Nurse Practitioner; Visit Provider Nurse Practitioner
DX: R00.2 Palpitations (principal); R06.02 Shortness of breath; F41.9 Anxiety disorder, unspecified; Z13.1 Encounter for screening for diabetes mellitus; Z13.220 Encounter for screening for lipoid disorders; Z86.2 Personal history of diseases of the blood and blood-forming organs and certain disorders involving the immune mechanism; Z11.59 Encounter for screening for other viral diseases
CPT/HCPCS: 36415; 71046; 80053; 80061; 82306; 82607; 82746; 83036; 83540; 83550; 83735; 84100; 84443; 84702; 85025; 86803; 87340; 87389; 87522; 93005; 93306